=== PATIENT | male | born 1970 | race Two or more races ===

== ENCOUNTER 2022-03-10 14:22 | Emergency (ER) | payer MEDICAID ==
[~2022-03-10] VITALS: Ht 175.3 cm; Wt 165.6 kg
[2022-03-10 14:29] VITALS: BP 121/60
== END 2022-03-10 17:02 | disposition home or self-care (01) ==
LOC: ER 14:22
DX: S00.83XA Contusion of other part of head, initial encounter (principal); S30.0XXA Contusion of lower back and pelvis, initial encounter; Z88.1 Allergy status to other antibiotic agents; Z88.2 Allergy status to sulfonamides; Z88.8 Allergy status to other drugs, medicaments and biological substances; W18.39XA Other fall on same level, initial encounter; Y93.01 Activity, walking, marching and hiking; Y92.89 Other specified places as the place of occurrence of the external cause; Y99.8 Other external cause status
CPT/HCPCS: 72100; 72220